=== PATIENT | female | born 1945 | race Caucasian/White ===

== ENCOUNTER 2016-05-14 17:52 | Emergency (ER) | payer OTHER, MEDICARE ==
--- NOTE | 2016-05-14 18:04 | ED GENERAL ADULT ---
History of Present Illness General Chief Complaint: General Adult Stated Complaint: BIBA CHILLS Source: patient Exam Limitations: no limitations Vital Signs & Intake/Output Vital Signs & Intake/Output Vital Signs Date Time Temp Pulse Resp B/P Pulse O2 O2 Flow FiO2 Ox Delivery Rate 05/15 1931 98.7 93 18 155/74 96 05/14 180 98.4 101 18 168/73 96 Room Air Triage Nurses Notes Reviewed? yes Onset: Gradual Duration: minute(s): (45) Timing: recent history Injury Environment: IOP APPT Severity: moderate Severity Numbers: 7 No Modifying Factors: none HPI: Patient is a 70-year-old female history diabetes, depression, anxiety presenting to the emergency department to complaint of gradual onset of chills all she was at her behavioral health appointment just prior to arrival. She reports that she was sitting there, finishing up the appointment when symptoms started. Denies any increased anxiety or stress. She reports that she felt very cold and could not get warm. They checked her blood glucose level was 110. She denies eating lunch. The last thing she ate was breakfast. Denies any associated nausea or vomiting. No abdominal pain. She worse that she had a left total knee replacement in March. Has been working with physical therapy with no complaints. Denies any increased pain or swelling to the left leg that she's noticed. Denies any associated chest pain palpitations. No coughing. She did get the flu vaccine this year. No sick contacts or recent travel. She reports that symptoms are subsiding at this point. (GALDINO HUNTER) Past History Travel History Traveled to [place] past 21 day No Medical History Any Pertinent Medical History? see below for history Surgical History Surgical History: non-contributory Family History Hx Contributory? No (GALDINO HUNTER) Review of Systems Review of Systems Constitutional: Reports: chills. Comments Review of systems: See HPI, All other systems negative. Constitutional, no fever or weight loss HEENT: No visual changes no sore throat no congestion Cardiovascular: No chest pain ,palpitation , orthopnea or ankle swelling Skin, no jaundice no rashes Respiratory: No dyspnea cough sputum or hemoptysis GI: No nausea no vomiting : No dysuria No hematuria Muscle skeletal: no back pain, no neck pain, Neurologic: No numbness no confusion Psych: No increased stress anxiety or depression,. Heme/endocrine: No bruising no bleeding no polyuria or polydipsia Immunology: No splenectomy or history of AIDS (AARON OHARA,GALDINO) Physical Exam Physical Exam General Appearance: well developed/nourished, no apparent distress, alert, awake , comfortable Comments: Well-developed well-nourished person in no acute distress HEENT: Normal EENT exam, extraocular motion intact, no nystagmus. Pupils equally round and reactive to light and accommodation. Nose is atraumatic. External auditory canal and Tympanic membranes clear. Pharynx normal. No swelling or edema. Moist oral mucosa. Neck: Supple, no lymphadenopathy, normal range of motion without pain or tenderness Back: Nontender, no CVA tenderness. Full range of motion Cardiovascular: Regular rate and rhythms no murmurs rubs or gallops, normal JVP Respiratory: Chest nontender. No respiratory distress.breath sounds clear to auscultation bilaterally Abdomen: Soft, nontender nondistended, no appreciable organomegaly. Normal bowel sounds. No ascites, no rebound or guarding. Extremity: Nonpitting edema noted in the left lower extremity, firm, nontender. Pedal pulses are 2+ bilaterally. Moderate edema noted over the left patella. Limited range of motion secondary to edema. Neuro: Alert oriented x3, motor sensory normal Skin: No appreciable rash on exposed skin, skin is warm and dry. Psych: Mood and affect is normal, memory and judgment is normal. Core Measures ACS in differential dx? No CVA/TIA Diagnosis: No Severe Sepsis Present: No Septic Shock Present: No (AARON OHARA,GALDINO) Progress Differential Diagnoses I considered the following diagnoses in my evaluation of the patient: Influenza , hypoglycemia, hyperglycemia, DVT, viral syndrome Plan of Care: Orders Procedure Date/time Status Consistent Carbohydrate 1 05/14 D Active FingerStick- Glucose 05/14 1802 Active RAPID VIRAL INFLUENZA A 05/14 180 Complete EKG 05/14 1802 Active Microbiology 05/14 1830 NASOPHARYN: Influenza Virus A & B Rapid Smear - COMP Diagnostic Imaging: Viewed by Me: Ultrasound. Discussed w/RAD: Ultrasound. Radiology Impression: PATIENT: LIZ AREVALO PRESENT AGE: 70 PATIENT ACCOUNT NO: [id number] : 45 LOCATION: [facility] ORDERING PHYSICIAN: GALDINO OHAAR SERVICE DATE: 05/14/16 EXAM TYPE: US - US-UNILATERAL VENOUS DOPPLER EXAMINATION: DOPPLER VENOUS ULTRASOUND EXTREMITY, LEFT CLINICAL INFORMATION: Left lower extremity pain. COMPARISON: None. TECHNIQUE: Grayscale, Doppler and spectral analysis of the lower extremity was performed. FINDINGS: There is no evidence for a deep venous thrombosis within the visualized lower extremity veins. There is normal flow, compression and augmentation. ADDITIONAL FINDINGS: No Benton's cyst is identified. IMPRESSION : Unremarkable examination. Specifically, no evidence for DVT. Initial ED EKG: SINUS TACHY 105 Comments: Patient is well-appearing neurologically intact no focal deficits. This is slightly tachycardic an EKG. She does have left lower extremity swelling. Ultrasound ordered. EKG ordered. Patient informed of ultrasound results,. Results and EKG results. Chills are nonspecific at this time. Patient will follow with PCP. Discussed with Dr. Zamorano and he agrees to plan. (GALDINO HUNTER) Departure Departure Time of Disposition: 1919 Disposition: HOME OR SELF CARE Condition: Stable Clinical Impression Primary Impression: Chills Additional Instructions: Follow-up with your primary care physician CALL TO MAKE appointment. Increase fluids. Keep a close eye on blood glucose level. 8 well-balanced meals. Return for worsening symptoms or concerns. Departure Forms: Customer Survey General Discharge Information (GALDINO HUNTER) PA/[employer] Co-Sign Statement Statement: ED Attending supervision documentation- x I saw and evaluated the patient. I have also reviewed all the pertinent lab results and diagnostic results. I agree with the findings and the plan of care as documented in the PA's/[employer]'s documentation. [] I have reviewed the ED Record and agree with the PA's/[employer]'s documentation. [] Additions or exceptions (if any) to the PAs/[employer]'s note and plan are summarized below: [] (BALDOMERO MILIAN,MYLES) Critical Care Note Critical Care Note Critical Care Time: non-applicable (GALDINO HUNTER)
--- NOTE | 2016-05-14 18:44 | ULTRASOUND REPORT ---
EXAMINATION: DOPPLER VENOUS ULTRASOUND EXTREMITY, LEFT CLINICAL INFORMATION: Left lower extremity pain. COMPARISON: None. TECHNIQUE: Grayscale, Doppler and spectral analysis of the lower extremity was performed. FINDINGS: There is no evidence for a deep venous thrombosis within the visualized lower extremity veins. There is normal flow, compression and augmentation. ADDITIONAL FINDINGS: No Benton's cyst is identified. IMPRESSION: Unremarkable examination. Specifically, no evidence for DVT.
[2016-05-14 19:32] VITALS: BP 155/74
== END 2016-05-14 19:33 ==
LOC: ERH 17:52
DX: R68.83 Chills (without fever) (principal); R60.0 Localized edema; Z96.652 Presence of left artificial knee joint; E11.9 Type 2 diabetes mellitus without complications
CPT/HCPCS: 87804; 87804-59; 93005; 93010

== ENCOUNTER 2017-07-26 15:57 | Emergency (ER) | payer OTHER, MEDICARE ==
[~2017-07-26] VITALS: Ht 162.6 cm; Wt 99.8 kg
[2017-07-26 16:02] VITALS: BP 162/94
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
--- NOTE | 2017-07-26 20:06 | RADIOLOGY REPORT ---
EXAMINATION: XR LUMBOSACRAL SPINE CLINICAL INFORMATION: Pain. COMPARISON: None TECHNIQUE: AP. Lateral. Cone-down AP lateral lumbosacral junction view FINDINGS: There is osteopenia. Thoracoplasty present at L4 with about 50% loss of height of the vertebrae. There is multilevel degenerative spondylosis with multilevel endplate spurring and facet joint arthrosis and disc height narrowing. There is vacuum disc phenomena L4-L5. Bilateral hip replacements. Atherosclerotic vascular wall calcifications of the wall of aorta IMPRESSION: 1. No acute abnormality. 2. Status post thoracoplasty of 4 with about 50% loss of height of the vertebrae. 3. Degenerative spondylosis of lumbar spine. 4. Osteopenia.
--- NOTE | 2017-07-26 20:27 | RADIOLOGY REPORT ---
EXAMINATION: XR WRIST, LEFT XR SHOULDER, LEFT XR SHOULDER, RIGHT CLINICAL INFORMATION: Bilateral shoulder pain and left wrist pain. Rule out fracture. COMPARISON: None TECHNIQUE: Left wrist 4 views; PA, lateral, oblique and ulnar deviation views. 3 views of each shoulder. FINDINGS: LEFT WRIST: Surgical hardware through the carpal bones is noted with at least partial fusion of the multiple carpal bones. No evidence of hardware fracture or failure. There is no evidence of acute fracture or dislocation. Radiocarpal joint alignment is maintained. Mild osseous demineralization. Degenerative changes are noted at the radiocarpal joint with irregularity of the articular margins. There might be a small focal erosion along the radial articular margin. No evidence of acute fracture or dislocation. Mild degenerative changes are noted at the 1st carpometacarpal joint and 1st interphalangeal joint. LEFT SHOULDER: Arthroplasty hardware is in place in the proximal humerus, without evidence of periprosthetic lucency to suggest fracture or loosening. The glenohumeral joint alignment is normal. Articular margin irregularity and subarticular sclerosis is noted in the glenoid. A single linear surgical clip is noted projecting over the glenoid. Post surgical changes are noted at the acromioclavicular joint with resection of the lateral end of the clavicle. No soft tissue calcifications. Visualized left hemithorax is unremarkable. RIGHT SHOULDER: Arthroplasty hardware is in place in the proximal humerus without evidence of significant periprosthetic lucency to suggest hardware loosening or periprosthetic fracture. A single surgical clip is noted projecting over the glenoid. Irregularity of the glenoid, articular margin and mild subarticular sclerosis is noted. [id number] acromioclavicular joint degenerative changes are seen with narrowing of the joint space and subarticular sclerosis. The acromioclavicular and glenohumeral joint alignments are normal. No evidence of acute fracture or dislocation. No soft tissue calcifications. Visualized right hemithorax is unremarkable. IMPRESSION: LEFT WRIST: No acute osseous abnormality. Post surgical changes as described above without evidence of hardware loosening or hardware fracture. Degenerative changes at the radiocarpal joint. BILATERAL SHOULDERS: No acute osseous abnormality. Post surgical changes as detailed above without evidence of hardware loosening or periprosthetic fracture. [id number] degenerative changes at the right acromioclavicular joint.
== END 2017-07-26 21:18 ==
LOC: ERH 15:57
DX: M25.532 Pain in left wrist (principal)
CPT/HCPCS: 72110; 73030-LT; 73030-RT; 73110-LT